=== PATIENT | female | born 1995 | race Two or more races ===

== ENCOUNTER 2023-05-21 10:10 | Emergency (ER) | payer SELFPAY ==
[2023-05-21] MEDS ORDERED: Ondansetron 4 MG Tab.DIS PO ONE (10:36)
[2023-05-21] MEDS ORDERED: Meclizine 25 MG Tab PO ONE (10:36)
[2023-05-21 11:10] LABS: BASOPHILS PERCENT AUTO 0.2 % (0.0-1.0); EOSINOPHILS ABSOLUTE AUTO 0.1 K/mm3 (0.0-0.4); EOSINOPHILS PERCENT AUTO 1.8 % (0.0-6.0); HEMATOCRIT 43.5 % (37.0-47.0); HEMOGLOBIN 14.3 gm/dl (12.0-16.0); IMMATURE GRAN ABSOLUTE AUTO 0.01 K/mm3 (0.00-0.05); IMMATURE GRAN PERCENT AUTO 0.2 % (0.0-0.4); LYMPHOCYTES ABSOLUTE AUTO 1.9 K/mm3 (1.0-4.8); LYMPHOCYTES PERCENT AUTO 33.5 % (24.0-44.0); MEAN CORPUSCULAR HEMOGLOBIN 30.6 pg (28.0-32.0); MEAN CORPUSCULAR HGB CONC 32.9 g/dl (32.0-36.0); MEAN CORPUSCULAR VOLUME 92.9 fl (83.0-99.0); MEAN PLATELET VOLUME 10.5 fl (9.4-12.3); MONOCYTES ABSOLUTE AUTO 0.3 K/mm3 (0.0-0.8); MONOCYTES PERCENT AUTO 5.6 % (0.0-8.0); NEUTROPHILS ABSOLUTE AUTO 3.3 K/mm3 (1.8-7.7); NEUTROPHILS PERCENT AUTO 58.7 % (41.0-71.0); PLATELET COUNT,PLT 208 K/mm3 (150-400); RED BLOOD CELL COUNT 4.68 M/mm3 (4.10-5.30); WHITE BLOOD CELL COUNT,WBC 5.56 K/mm3 (3.9-11.3)
[2023-05-21 11:35] LABS: ALANINE AMINOTRANSFERASE,ALT 35 U/L (14-59); ALBUMIN 3.9 g/dl (3.4-5.0); ALKALINE PHOSPHATASE 61 U/L (46-116); ANION GAP 10.2 (5-15); ASPARTATE AMNIOTRANSFERASE,AST 25 U/L (15-37); BILIRUBIN TOTAL 0.5 mg/dL (0.2-1.0); BLOOD UREA NITROGEN,BUN 13 mg/dL (7-18); BUN/CREATININE RATIO 16.3 (14-18); CALCIUM 8.9 mg/dL (8.5-10.1); CARBON DIOXIDE,CO2 28 mEq/L (21-32); CHLORIDE,CL 104 mEq/L (98-107); CREATININE 0.8 mg/dL (0.55-1.02); ESTIMATED GFR 103 mL/min (>60); GLUCOSE RANDOM 89 mg/dL (70-99); MAGNESIUM 1.9 mg/dL (1.8-2.4); POTASSIUM,K 3.2 mEq/L (3.5-5.1); SODIUM,NA 139 mEq/L (136-145)
[2023-05-21 11:36] LABS: TROPONIN I HIGH SENSITIVITY < 4 pg/mL (<=51)
== END 2023-05-21 12:40 | disposition home or self-care (01) ==
LOC: JD.ED 10:10
DX: R42 Dizziness and giddiness (principal); Z79.899 Other long term (current) drug therapy
CPT/HCPCS: 36415; 70450; 71046; 80053; 83735; 84484; 85025; 93005; 99284; A9270

== ENCOUNTER 2023-12-29 15:57 | Emergency (ER) | payer BC, MEDICAID ==
[2023-12-29 17:44] LABS: BASOPHILS PERCENT AUTO 0.3 % (0.0-1.0); EOSINOPHILS ABSOLUTE AUTO 0.2 K/mm3 (0.0-0.4); EOSINOPHILS PERCENT AUTO 1.9 % (0.0-6.0); HEMATOCRIT 39.4 % (37.0-47.0); HEMOGLOBIN 13.1 gm/dl (12.0-16.0); IMMATURE GRAN ABSOLUTE AUTO 0.01 K/mm3 (0.00-0.05); IMMATURE GRAN PERCENT AUTO 0.1 % (0.0-0.4); LYMPHOCYTES ABSOLUTE AUTO 2.1 K/mm3 (1.0-4.8); LYMPHOCYTES PERCENT AUTO 27.5 % (24.0-44.0); MEAN CORPUSCULAR HEMOGLOBIN 30.8 pg (28.0-32.0); MEAN CORPUSCULAR HGB CONC 33.2 g/dl (32.0-36.0); MEAN CORPUSCULAR VOLUME 92.5 fl (83.0-99.0); MEAN PLATELET VOLUME 10.3 fl (9.4-12.3); MONOCYTES ABSOLUTE AUTO 0.6 K/mm3 (0.0-0.8); MONOCYTES PERCENT AUTO 7.7 % (0.0-8.0); NEUTROPHILS ABSOLUTE AUTO 4.9 K/mm3 (1.8-7.7); NEUTROPHILS PERCENT AUTO 62.5 % (41.0-71.0); PLATELET COUNT,PLT 223 K/mm3 (150-400); RED BLOOD CELL COUNT 4.26 M/mm3 (4.10-5.30); WHITE BLOOD CELL COUNT,WBC 7.78 K/mm3 (3.9-11.3)
== END 2023-12-29 19:55 | disposition home or self-care (01) ==
LOC: JD.ED 15:57
DX: O03.4 Incomplete spontaneous abortion without complication (principal)
CPT/HCPCS: 36415; 76817; 76817-26; 84702; 85025; 86900; 86901; 99283; 99284